=== PATIENT | female | born 1985 | race Caucasian/White ===

== ENCOUNTER 2017-08-26 14:03 | Emergency (ER) | payer SELFPAY ==
[2017-08-26] MEDS ORDERED: MORPHINE SULFATE INJ 10 MG/ML VIAL IM ONE (14:42)
[2017-08-26] MEDS ORDERED: KETOROLAC TROMETHAMINE INJ 60 MG/2 ML VIAL IM ONE (14:42)
[2017-08-26] MEDS ORDERED: ORPHENADRINE CITRATE 30 MG/ML AMP IM ONE (14:43)
--- NOTE | 2017-08-26 15:44 | ED.PDOC ---
History of Present Illness - General Chief Complaint: Back Pain or Injury Stated Complaint: back pain Time Seen by Provider: 08/26/17 14:41 Source: patient Exam Limitations: no limitations - History of Present Illness Initial Comments: PT REPORTS ONSET OF LOW BACK PAIN WITH RADIATION DOWN BOTH LEGS LAST NIGHT UPON STANDING UP FROM A SEATED POSITION. PT HAS HISTORY OF LUMBAR DISC DISEASE AND SCIATICA IN THE PAST. PT REPORTS SOME PAIN RELIEF WITH MEDS AT HOME. Quality/Severity: severe, burning, radiation Back Pain Location: lumbar spine Back Pain Radiation: buttocks, upper legs Method of Injury/Prior Injury: prior injury Improving Factors: immobilization Worsening Factors: movement Associated Symptoms: lower back pain Allergies/Adverse Reactions: Allergies Cephalexin [From Keflex] Allergy (Verified 08/26/17 14:31) Other Home Medications: Ambulatory Orders Acetaminophen W/ Codeine [Tylenol W/ CODEINE #3] 1 ea PO Q4HR PRN #24 08/26/17 Diazepam [Valium] 2 mg PO Q6HR PRN #14 tab 08/26/17 Ibuprofen 800 mg PO Q8HR PRN #30 tab 08/26/17 Review of Systems - Review of Systems Constitutional: Denies: chills, fever EENTM: Denies: nose congestion, throat pain Respiratory: Denies: cough, short of breath Cardiology: Denies: chest pain, palpitations Gastrointestinal/Abdominal: Denies: diarrhea, nausea, vomiting Genitourinary: Denies: frequency, hematuria Musculoskeletal: States: see HPI, back pain, muscle pain. Denies: joint pain, joint swelling Skin: Denies: change in hair/nails, dryness Neurological: Denies: headache, numbness, weakness Past Medical History (General) - Patient Medical History Hx Asthma: No Hx Cardiac Disorders: No Hx Hypertension: No Hx Diabetes: No Surgical History: tonsillectomy, other - Vaccination History Hx Influenza Vaccination: Yes - Social History Hx Tobacco Use: No Hx Alcohol Use: No - Female History Patient is a Female of Child Bearing Age (10 -59 yrs old): Yes Patient : No - Triage Comment ED Triage Comment: LMP one week ago. Family Medical History - Family History Mother Family History: Unknown Physical Exam - Physical Exam General Appearance: Alert, Obese, Well Groomed, Well Hydrated, Other - APPEARS UNCOMFORTABLE Eyes, Ears, Nose, Throat Exam: normal ENT inspection Neck Exam: normal alignment, normal inspection Cardiovascular/Respiratory: no M/R/G, normal breath sounds, no respiratory distress Back Exam: other - DIFFUSE LUMBAR TENDERNESS Extremity Exam: pain with movement - STRAIGHT LEG RAISE POSITIVE AT 45 DEGREES, BILATERALLY Neurologic: no motor/sensory deficits, alert, normal mood/affect, oriented x 3 Skin Exam: normal color, warm/dry Progress - Progress Progress: 08/26/17 15:49 PT REPORTS ONLY MODEST RELIEF AFTER TORADOL, MORPHINE, AND NORFLEX IM. WILL D/ C HOME WITH PAIN MEDS, MUSCLE RELAXANTS, AND INSTRUCTIONS FOR BED REST. Departure - Departure Clinical Impression: Sciatica associated with disorder of lumbosacral spine Time of Disposition: 15:43 Disposition: Discharge to Home or Self Care Condition: Fair Departure Forms: ED Discharge - Pt. Copy, Patient Portal Self Enrollment Instructions: DI for Back Pain With Sciatica Activity: increase activity as tolerated Referrals: EFRAIN BELTRAN [Primary Care Provider] - 1-2 Weeks Prescriptions: Acetaminophen W/ Codeine [Tylenol W/ CODEINE #3] 1 ea PO Q4HR PRN #24 PRN Reason: Pain Diazepam [Valium] 2 mg PO Q6HR PRN #14 tab PRN Reason: Muscle Spasms Ibuprofen 800 mg PO Q8HR PRN #30 tab PRN Reason: Pain Home Medications: Ambulatory Orders Acetaminophen W/ Codeine [Tylenol W/ CODEINE #3] 1 ea PO Q4HR PRN #24 08/26/17 Diazepam [Valium] 2 mg PO Q6HR PRN #14 tab 08/26/17 Ibuprofen 800 mg PO Q8HR PRN #30 tab 08/26/17
[2017-08-26 16:01] VITALS: BP 143/78; TEMP 97.9; O2SAT 99
== END 2017-08-26 15:56 | disposition home or self-care (01) ==
LOC: ER 14:03
DX: M51.16 Intervertebral disc disorders with radiculopathy, lumbar region (principal); Z79.899 Other long term (current) drug therapy
CPT/HCPCS: J1885; J2270; J2360

== ENCOUNTER 2017-09-02 08:29 | Emergency (ER) | payer OTHER ==
[2017-09-02] MEDS ORDERED: CYCLOBENZAPRINE HCL 5 MG TAB PO ONE (08:58)
[2017-09-02] MEDS ORDERED: GABAPENTIN 300 MG CAP PO ONE (08:58)
[2017-09-02] MEDS ORDERED: predniSONE 20 MG TAB PO ONE (08:58)
--- NOTE | 2017-09-02 09:01 | ED.PDOC ---
History of Present Illness - General Chief Complaint: Back Pain or Injury Time Seen by Provider: 09/02/17 08:43 Source: patient Exam Limitations: no limitations - History of Present Illness Initial Comments: the patient is a 31-year-old female presenting to the emergency room secondary to a flare up of her degenerative disc disease in her lower back given her bilateral lower extremity sciatica. The patient had a flareup about a week ago. Her original injury date was about 7 years ago. She was seen here one week ago and started on ibuprofen and Valium and Tylenol No. 3. The patient 's pain has not improved. She is still having some sciatica. The weakness and no incontinence. No new injury. Timing/Duration: 1 week Severity: moderate Improving Factors: nothing Worsening Factors: movement Associated Symptoms: denies symptoms Allergies/Adverse Reactions: Allergies Cephalexin [From Keflex] Allergy (Verified 08/26/17 14:31) Other Home Medications: Ambulatory Orders Acetaminophen W/ Codeine [Tylenol W/ CODEINE #3] 1 ea PO Q4HR PRN #24 08/26/17 Diazepam [Valium] 2 mg PO Q6HR PRN #14 tab 08/26/17 Ibuprofen 800 mg PO Q8HR PRN #30 tab 08/26/17 Cyclobenzaprine HCl [Flexeril] 5 mg PO TID PRN #30 tab 09/02/17 Gabapentin 300 mg PO TID PRN #60 cap 09/02/17 predniSONE [Prednisone] 20 mg PO DAILY #7 tab 09/02/17 Review of Systems - Review of Systems Constitutional: States: no symptoms reported EENTM: States: no symptoms reported Respiratory: States: no symptoms reported Cardiology: States: no symptoms reported Gastrointestinal/Abdominal: States: no symptoms reported Genitourinary: States: no symptoms reported Musculoskeletal: States: see HPI Skin: States: no symptoms reported Neurological: States: see HPI Endocrine: States: no symptoms reported Past Medical History (General) - Patient Medical History Hx Stroke: No Hx Asthma: No Hx of COPD: No Hx Cardiac Disorders: No Hx Congestive Heart Failure: No Hx Hypertension: No Hx Diabetes: No - Vaccination History Hx Tetanus, Diphtheria Vaccination: Yes Hx Influenza Vaccination: Yes Hx Pneumococcal Vaccination: Yes Immunizations Up to Date: Yes - Social History Hx Tobacco Use: No Hx Chewing Tobacco Use: No Hx Alcohol Use: No Hx Substance Use: No Hx Substance Use Treatment: No Hx Depression: No Feels Threatened In Home Enviroment: No Feels Threatened In a Relationship: No Hx Physical Abuse: No Hx Emotional Abuse: No Hx Suspected Abuse: No - Female History Patient is a Female of Child Bearing Age (10 -59 yrs old): Yes Patient : No Family Medical History - Family History Mother Family History: Unknown Physical Exam - Physical Exam General Appearance: Alert, Comfortable, No apparent distress Eye Exam: bilateral normal Ears, Nose, Throat: hearing grossly normal Neck: full range of motion Respiratory: no respiratory distress, no accessory muscle use Cardiovascular/Chest: normal peripheral pulses, no edema Peripheral Pulses: dorsalis pedis,right: 2+, dorsalis pedis,left: 2+ Gastrointestinal/Abdominal: other - obese Rectal Exam: deferred Back Exam: other - lower paraspinal muscle spasm. No spinous process tenderness to palpation. The patient is reluctant to undergo another hip flexion and extension exam due to pain from the exam last time. Extremity: no pedal edema, normal capillary refill Neurologic: process development technician II-XII nml as tested, no motor/sensory deficits, alert, normal mood/affect, oriented x 3 Skin Exam: normal color Comments: Vital Signs - 24 hr 09/02/17 08:43 Temperature 98.5 F Pulse Rate [ 60 Apical`] Respiratory 22 Rate Blood Pressure 135/86 [Left Arm] O2 Sat by Pulse 99 Oximetry Progress - Progress Progress: 09/02/17 09:01 the patient's 31-year-old female presenting to the emergency room secondary to recurrent chronic low back pain with bilateral lower extremity sciatica. the patient has a history of degenerative disc disease. The patient has failed therapy with Valium and Tylenol No. 3 and ibuprofen. The patient is going to be placed on prednisone 20 mg daily for the next week along with Flexeril 5 mg by mouth 3 times a day when necessary and gabapentin 300 mg by mouth 3 times a day when necessary. A heat pad and topical icy hot or Biofreeze may also prove beneficial. She can start doing mild stretching exercises. She should contact her primary care doctor to get her set up with a neurologist for additional testing possibly including an MRI and nerve conduction test to determine if she is going to need more interventional therapy for this problem in the future. Long-term she does need to do exercises to help reduce weight as well as strengthen muscles anterior to the spine such as with swimming, rowing and bicycling. ER warnings were given. The patient is to do no heavy lifting in the near future. she needs to follow up with her primary care doctor within the next week. Departure - Departure Clinical Impression: Sciatica Qualifiers: Laterality: bilateral Qualified Code(s): M54.31 - Sciatica, right side; M54.32 - Sciatica, left side; M54.32 - Sciatica, left side Chronic low back pain with bilateral sciatica Qualifiers: Back pain laterality: bilateral Qualified Code(s): M54.42 - Lumbago with sciatica, left side; M54.41 - Lumbago with sciatica, right side; M54.41 - Lumbago with sciatica, right side; G89.29 - Other chronic pain; G89.29 - Other chronic pain Disposition: Discharge to Home or Self Care Condition: Fair Departure Forms: ED Discharge - Pt. Copy, Patient Portal Self Enrollment Instructions: DI for Back Pain With Sciatica Diet: regular diet Activity: no lifting Referrals: EFRAIN BELTRAN [Primary Care Provider] - 1-2 Weeks Prescriptions: Cyclobenzaprine HCl [Flexeril] 5 mg PO TID PRN #30 tab PRN Reason: Muscle Spasms Gabapentin 300 mg PO TID PRN #60 cap PRN Reason: Pain -- Moderate To Severe predniSONE [Prednisone] 20 mg PO DAILY #7 tab Home Medications: Ambulatory Orders Acetaminophen W/ Codeine [Tylenol W/ CODEINE #3] 1 ea PO Q4HR PRN #24 08/26/17 Diazepam [Valium] 2 mg PO Q6HR PRN #14 tab 08/26/17 Ibuprofen 800 mg PO Q8HR PRN #30 tab 08/26/17 Cyclobenzaprine HCl [Flexeril] 5 mg PO TID PRN #30 tab 09/02/17 Gabapentin 300 mg PO TID PRN #60 cap 09/02/17 predniSONE [Prednisone] 20 mg PO DAILY #7 tab 09/02/17 Additional Instructions: the patient's 31-year-old female presenting to the emergency room secondary to recurrent chronic low back pain with bilateral lower extremity sciatica. the patient has a history of degenerative disc disease. The patient has failed therapy with Valium and Tylenol No. 3 and ibuprofen. The patient is going to be placed on prednisone 20 mg daily for the next week along with Flexeril 5 mg by mouth 3 times a day when necessary and gabapentin 300 mg by mouth 3 times a day when necessary. A heat pad and topical icy hot or Biofreeze may also prove beneficial. She can start doing mild stretching exercises. She should contact her primary care doctor to get her set up with a neurologist for additional testing possibly including an MRI and nerve conduction test to determine if she is going to need more interventional therapy for this problem in the future. Long-term she does need to do exercises to help reduce weight as well as strengthen muscles anterior to the spine such as with swimming, rowing and bicycling. ER warnings were given. The patient is to do no heavy lifting in the near future. she needs to follow up with her primary care doctor within the next week.
[2017-09-02 17:47] VITALS: BP 135/86; TEMP 98.5; O2SAT 99
== END 2017-09-02 09:38 | disposition home or self-care (01) ==
LOC: ER 08:29
DX: M54.41 Lumbago with sciatica, right side (principal); M54.42 Lumbago with sciatica, left side; G89.29 Other chronic pain; Z79.899 Other long term (current) drug therapy; Z88.1 Allergy status to other antibiotic agents; Z87.828 Personal history of other (healed) physical injury and trauma